=== PATIENT | female | born 1995 | race Caucasian/White ===

== ENCOUNTER 2020-03-18 20:39 | Emergency (ER) | payer OTHER ==
[~2020-03-18] VITALS: Ht 157.5 cm; Wt 45.4 kg
== END 2020-03-18 22:27 | disposition home or self-care (01) ==
LOC: ER 20:39
DX: M62.838 Other muscle spasm (principal)

== ENCOUNTER 2020-08-28 10:56 | Emergency (ER) | payer OTHER ==
[~2020-08-28] VITALS: Ht 157.5 cm; Wt 46.7 kg
== END 2020-08-28 12:28 | disposition home or self-care (01) ==
LOC: ER 10:56
DX: H60.8X2 Other otitis externa, left ear (principal)

== ENCOUNTER 2025-06-28 10:57 | Emergency (ER) | payer OTHER ==
[~2025-06-28] VITALS: Ht 160 cm; Wt 64.9 kg
[2025-06-28] MEDS ORDERED: METFORMIN HCL500 M3 (11:38)
[2025-06-28] MEDS ORDERED: LISINOPRIL2.5 MG (11:38)
== END 2025-06-28 12:53 | disposition home or self-care (01) ==
LOC: ER 10:58
DX: K59.00 Constipation, unspecified (principal); N64.4 Mastodynia